=== PATIENT | female | born 1980 | race Caucasian/White ===

== ENCOUNTER 2017-01-16 12:44 | Emergency (ER) | payer OTHER ==
[~2017-01-16] VITALS: Ht 162.6 cm; Wt 118.0 kg
[2017-01-16 13:53] LABS: ADD MIUA? NO; BILIRUBIN NEGATIVE; BLOOD NEGATIVE; COLOR YELLOW ((YELLOW)); GLUCOSE (STRIP) NEGATIVE; KETONES NEGATIVE; LEUKOCYTES NEGATIVE; NITRITE NEGATIVE; PROTEIN (STRIP) NEGATIVE; SPECIFIC GRAVITY 1.024 (1.000-1.030); UROBILINOGEN 0.2 MG/DL (0.2-1.0)
[2017-01-16 13:54] LABS: HEMATOCRIT 38.5 % (36.0-46.0); MCH 29.1 PG (29.0-34.0); MCV 85.6 FL (83-99); MEAN PLAT.VOLUME 11.4 uM^3 (9.5-12.4); PLATELET COUNT 260 K/uL (156-360); RBC DIS.WIDTH-CV 13.1 % (11.8-14.6); WHITE BLOOD COUNT 7.2 K/uL (4.1-10.2)
[2017-01-16 14:02] LABS: CHLORIDE 106 mEq/L (99-109); POTASSIUM 4.2 mEq/L (3.7-5.4); SODIUM 139 mEq/L (136-147)
[2017-01-16 14:04] LABS: GLUCOSE 98 mg/dL (70-99)
[2017-01-16 14:05] LABS: ANION GAP 11 MEQ/L (2-14)
[2017-01-16 14:06] LABS: TOTAL BILIRUBIN 0.5 mg/dL (0.0-1.0)
[2017-01-16 14:08] LABS: ALKALINE PHOSPHATASE 78 IU/L (3-129); GFR ESTIMATE (CALCULATED) > 59 mL/min/
[2017-01-16 14:09] LABS: UREA NITROGEN (BUN) 7 mg/dL (9-23)
[2017-01-16 14:11] LABS: LIPASE 21 U/L (1.0-51.0)
[2017-01-16] MEDS ORDERED: LEVAQUIN750 MG PO (15:34)
[2017-01-16] MEDS ORDERED: ZOFRAN ODT4 MG PO (15:34)
[2017-01-16 15:52] VITALS: BP 182/97
== END 2017-01-16 15:54 | disposition home or self-care (01) ==
LOC: EME 12:44 → RME 12:44
PROVIDERS: Nurse Practitioner Family
DX: J32.9 Chronic sinusitis, unspecified (principal); R10.9 Unspecified abdominal pain; R11.2 Nausea with vomiting, unspecified; E11.9 Type 2 diabetes mellitus without complications; I10 Essential (primary) hypertension; Z87.442 Personal history of urinary calculi; Z79.84 Long term (current) use of oral hypoglycemic drugs
CPT/HCPCS: 74176; 80053; 81003; 83690; 85027; 99281; 99284; J1885; J2405; J7030

== ENCOUNTER 2018-03-29 17:55 | Emergency (ER) | payer OTHER ==
[~2018-03-29] VITALS: Ht 162.6 cm; Wt 116.3 kg
[~2018-03-29 17:55] MED LIST: LEVAQUIN750 MG PO; ZOFRAN ODT4 MG PO
[2018-03-29 18:56] LABS: HEMATOCRIT 41.1 % (36.0-46.0); HEMOGLOBIN 14.1 G/DL (11.9-15.5); MCH 30.1 PG (29.0-34.0); MCHC 34.3 G/DL (30.0-36.0); MCV 87.8 FL (83-99); PLATELET COUNT 280 K/uL (156-360); RBC DIS.WIDTH-CV 13.5 % (11.8-14.6); RBC DIS.WIDTH-SD 43.5 % (39-53); RED BLOOD COUNT 4.68 M/uL (3.80-5.20); WHITE BLOOD COUNT 9.7 K/uL (4.1-10.2)
[2018-03-29 19:05] LABS: ALBUMIN 4.5 g/dL (3.2-4.8); CHLORIDE 110 mEq/L (99-109); POTASSIUM 4.4 mEq/L (3.7-5.4); SODIUM 138 mEq/L (136-147)
[2018-03-29 19:08] LABS: GLUCOSE 129 mg/dL (70-99); TOTAL PROTEIN 7.5 g/dL (6.4-8.3)
[2018-03-29 19:10] LABS: TOTAL BILIRUBIN 0.4 mg/dL (0.0-1.0)
[2018-03-29 19:11] LABS: ALKALINE PHOSPHATASE 86 IU/L (3-129)
[2018-03-29 19:12] LABS: CREATININE 0.8 mg/dL (0.6-1.3); GFR ESTIMATE (CALCULATED) > 59 mL/min/
[2018-03-29 19:13] LABS: AST (GOT) 29 IU/L (2-34); UREA NITROGEN (BUN) 12 mg/dL (9-23)
[2018-03-29 19:14] LABS: ALT (GPT) 45 IU/L (3-49)
[2018-03-29 19:15] LABS: LIPASE 40 U/L (1.0-51.0)
[2018-03-29 19:38] LABS: APPEARANCE CLEAR ((CLEAR)); BILIRUBIN NEGATIVE; BLOOD NEGATIVE; COLOR YELLOW ((YELLOW)); GLUCOSE (STRIP) NEGATIVE; KETONES NEGATIVE; LEUKOCYTES NEGATIVE; NITRITE NEGATIVE; PROTEIN (STRIP) NEGATIVE
[2018-03-29] MEDS ORDERED: ACYCLOVIR200 MG PO (20:48)
[2018-03-29] MEDS ORDERED: RECTASMOOTHE30 GM TP (20:48)
[2018-03-29 21:13] VITALS: BP 134/88
== END 2018-03-29 21:14 | disposition home or self-care (01) ==
LOC: EME 17:55
PROVIDERS: Physician Assistant
DX: R19.7 Diarrhea, unspecified (principal); R10.84 Generalized abdominal pain; B02.9 Zoster without complications; G35 Multiple sclerosis; E11.9 Type 2 diabetes mellitus without complications; E06.3 Autoimmune thyroiditis; I10 Essential (primary) hypertension; Z87.442 Personal history of urinary calculi; Z83.79 Family history of other diseases of the digestive system
CPT/HCPCS: 74177; 80053; 81003; 83690; 85027; 99281; 99284; J7040

== ENCOUNTER 2018-04-02 04:11 | Emergency (ER) | payer OTHER ==
[~2018-04-02] VITALS: Ht 162.6 cm; Wt 117.9 kg
[~2018-04-02 04:11] MED LIST changes: +ACYCLOVIR200 MG PO; +RECTASMOOTHE30 GM TP
[2018-04-02] MEDS ORDERED: PROCTOFOAM-HC10 GM PR (05:41)
[2018-04-02] MEDS ORDERED: MOTRIN800 MG PO (05:41)
[2018-04-02] MEDS ORDERED: COLACE100 MG PO (05:41)
[2018-04-02 05:56] VITALS: BP 165/98
== END 2018-04-02 05:56 | disposition home or self-care (01) ==
LOC: EME 04:11
DX: K59.00 Constipation, unspecified (principal); N81.10 Cystocele, unspecified; K64.4 Residual hemorrhoidal skin tags; E11.9 Type 2 diabetes mellitus without complications; I10 Essential (primary) hypertension; Z87.442 Personal history of urinary calculi
CPT/HCPCS: 99281; 99284

== ENCOUNTER 2018-05-22 14:34 | Emergency (ER) | payer OTHER ==
[~2018-05-22] VITALS: Ht 165.1 cm; Wt 119.7 kg
[~2018-05-22 14:34] MED LIST changes: +COLACE100 MG PO; +MOTRIN800 MG PO; +PROCTOFOAM-HC10 GM PR
[2018-05-22 17:02] LABS: HEMATOCRIT 38.7 % (36.0-46.0); HEMOGLOBIN 13.4 G/DL (11.9-15.5); MCH 30.4 PG (29.0-34.0); MCHC 34.6 G/DL (30.0-36.0); MCV 87.8 FL (83-99); PLATELET COUNT 237 K/uL (156-360); RBC DIS.WIDTH-CV 12.5 % (11.8-14.6); RBC DIS.WIDTH-SD 39.9 % (39-53); RED BLOOD COUNT 4.41 M/uL (3.80-5.20); WHITE BLOOD COUNT 7.6 K/uL (4.1-10.2)
[2018-05-22 17:16] LABS: CHLORIDE 107 mEq/L (99-109); POTASSIUM 4.4 mEq/L (3.7-5.4); SODIUM 141 mEq/L (136-147)
[2018-05-22 17:17] LABS: GLUCOSE 88 mg/dL (70-99)
[2018-05-22 17:20] LABS: CREATININE 0.7 mg/dL (0.6-1.3); GFR ESTIMATE (CALCULATED) > 59 mL/min/
[2018-05-22 17:21] LABS: UREA NITROGEN (BUN) 9 mg/dL (9-23)
[2018-05-22 17:33] LABS: QUANTITATIVE HCG < 4.0 MIU/ML
[2018-05-22] MEDS ORDERED: VALACYCLOVIR1000 MG PO (18:08)
[2018-05-22] MEDS ORDERED: ULTRAM50 MG PO (18:08)
[2018-05-22 18:28] VITALS: BP 169/85
== END 2018-05-22 18:29 | disposition home or self-care (01) ==
LOC: EME 14:34
PROVIDERS: Physician Assistant
DX: B02.9 Zoster without complications (principal); R51 Headache; G35 Multiple sclerosis; E06.3 Autoimmune thyroiditis; Z86.79 Personal history of other diseases of the circulatory system; Z88.2 Allergy status to sulfonamides; Z88.0 Allergy status to penicillin; Z88.1 Allergy status to other antibiotic agents; Z88.8 Allergy status to other drugs, medicaments and biological substances
CPT/HCPCS: 80048; 84702; 85027; 99281; 99284; J1885

== ENCOUNTER 2018-07-01 03:01 | Emergency (ER) | payer OTHER ==
[~2018-07-01] VITALS: Ht 162.6 cm; Wt 125.1 kg
[~2018-07-01 03:01] MED LIST changes: +ULTRAM50 MG PO; +VALACYCLOVIR1000 MG PO
[2018-07-01] MEDS ORDERED: ULTRAM50 MG PO (04:25)
[2018-07-01] MEDS ORDERED: NEOMYCIN-POLYMY10 ML BOTH EARS (04:25)
[2018-07-01] MEDS ORDERED: ZITHROMAX250 MG PO (04:25)
[2018-07-01 04:31] VITALS: BP 208/120
== END 2018-07-01 04:31 | disposition home or self-care (01) ==
LOC: EME 03:01
DX: H60.91 Unspecified otitis externa, right ear (principal); I10 Essential (primary) hypertension; E11.9 Type 2 diabetes mellitus without complications; E06.3 Autoimmune thyroiditis; G35 Multiple sclerosis; Z88.0 Allergy status to penicillin; Z88.2 Allergy status to sulfonamides
CPT/HCPCS: 99281; 99284